=== PATIENT | female | born 1965 | race Caucasian/White ===

== ENCOUNTER 2024-06-01 16:59 | Emergency (ER) | payer BC, SELFPAY ==
[2024-06-01] VITALS (28 sets, daily range): BP systolic 97–149; BP diastolic 54–82; PULSE 66–85; TEMP 37.2; O2SAT 95–100; BMI 22.5
[2024-06-01 17:09] LABS: Glucometer 321 mg/dL (74-106)
--- NOTE | 2024-06-01 17:14 | ECG_ITS ---
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 Measurements Intervals [place] Rate: 69 P: 65 CT: 132 QRS: 67 QRSD: 82 T: 215 QT: 374 QTc: 393 Interpretive Statements [address] and T wave abnormality abnormal ECG No previous ECG available for comparison Electronically Signed On 06-01-2024 17:43:40 EDT by RIGO GLYNN M.D.
[2024-06-01 17:21] LABS: Basophils Absolute Auto 0.1 10^3/uL (0.0-0.1); Basophils Percent Auto 0.8 % (0.2-2.0); Eosinophils Absolute Auto 0.1 10^3/uL (0.0-0.7); Eosinophils Percent Auto 1.3 % (0.9-7.0); Hematocrit 43.8 % (36.0-48.0); Hemoglobin 14.7 g/dL (12.0-16.0); Immature Granulocytes Abs Auto 0.04 10^3/uL (0.00-0.03); Immature Granulocytes Pct Auto 0.5 % (0.0-0.5); Lymphocytes Absolute Auto 1.8 10^3/uL (1.2-3.8); Lymphocytes Percent Auto 20.7 % (20.5-60.0); Mean Corpuscular HGB Conc 33.6 g/dL (29.9-35.2); Mean Corpuscular Hemoglobin 27.2 pg (26.7-34.0); Mean Platelet Volume 11.8 fL (9.5-13.5); Monocytes Absolute Auto 0.7 10^3/uL (0.3-0.8); Monocytes Percent Auto 8.3 % (1.7-12.0); Neutrophils Percent Auto 68.4 % (43.0-75.0); Platelet Count 254 10^3/uL (150-450); Red Blood Count 5.41 10^6/uL (4.20-5.40); Red Cell Distribution Width 12.8 % (11.0-15.0); White Blood Count 8.7 10^3/uL (4.0-11.0)
[2024-06-01] MEDS: 0.9 % SODIUM CHLORIDE 1,000 ML 1000 ML IV (17:30)
--- NOTE | 2024-06-01 17:38 | ED_ITS ---
HPI HPI - General Adult General Chief complaint: Neuro Symptoms/Deficit Stated complaint: SLURRED SPEECH Time Seen by Provider: 06/01/24 17:04 Source: patient Mode of arrival: Wheelchair Limitations: no limitations History of Present Illness HPI narrative: The patient have history of diabetes coming to the ER with a concern of new neurological symptoms, the patient mentioned that yesterday she called off work because she was feeling sick generally weak and tired and she had no appetite, she did not eat well yesterday or today and she did not take her diabetes medication, patient was standing up at work when she felt that she is seeing spots and she felt dizzy, she mentioned that she had a few seconds when she asked to sit down and she feels that she is going to pass out, the patient mentioned that she could not find the words easily at that moment, right now she is back to normal and she does not see any spot . But she mentioned that when she stands up she feels dizzy The patient denies any chest pain and she denies any cough. She did have some chills yesterday The patient denies any weakness at any time and specific part of the body but she mentioned that she had generalized weakness Related Data Home Medications ?Medication ?Instructions ?Recorded ?Confirmed buspirone 30 mg tablet mg 06/01/24 empagliflozin 10 mg tablet mg 06/01/24 (Jardiance) lamotrigine 100 mg tablet mg 06/01/24 levothyroxine 50 mcg tablet mcg 06/01/24 lisinopril 40 mg tablet mg 06/01/24 paroxetine HCl 40 mg tablet mg PO 06/01/24 Allergies Allergy/AdvReac Type Severity Reaction Status Date / Time amoxicillin Allergy Mild Rash Verified 06/01/24 17:09 tetracycline Allergy Mild Rash Verified 06/01/24 17:09 erythromycin base Allergy Rash Verified 06/01/24 17:09 Opioid HPI Opioid Management Most Recent Opioid Data: No Data to Display Review of Systems ROS Status of ROS 10 or more systems reviewed and unremark able except as noted in history and below PFSH PFSH Social History Little interest or pleasure in doing things: not at all Feeling down, depressed, or hopeless: not at all Exam Narrative Exam Narrative: Nurses notes and vital signs reviewed and patient is not hypoxic. General: Well-appearing and in no apparent distress. Skin: Warm, dry, no pallor noted. No rash. Head: Normocephalic, atraumatic. Neck: Supple, non-tender. Eye: Pupils are equal, round and EOMI. No scleral icterus. Ears, Nose, Mouth, and Throat: TM are clear, no nasal mucosal hypertrophy. Oral mucosa is moist, no posterior oropharynx erythema, uvula is mid-line Cardiovascular: Regular Rate and Rhythm without murmur, gallop or rub. Respiratory: No accessory muscle use or respiratory distress. Lungs are clear to auscultation, no wheezing, rales or rhonchi Chest Wall: no tenderness Back: No midline thoracic or lumbar vertebral tenderness. No CVA tenderness Musculoskeletal: normal ROM, no calf or popliteal tenderness, no lower extremity edema/swelling GI: Abdomen is soft, non-distended. Normal bowel sounds. No masses appreciated. No tenderness to palpation. No rebound, guarding, or rigidity noted. Neurological: A&O x4. No cranial nerve dysfunction observed. Moves all extremities. Sensation intact. Psychiatric: Cooperative and interactive. Normal mood and affect. Constitutional Vital Signs, click to edit/add: Last Vital Signs Temp 98.9 F 06/01/24 17:02 Pulse 85 06/01/24 18:28 Resp 20 06/01/24 17:02 BP 128/58 06/01/24 18:28 Pulse Ox 97 06/01/24 17:02 O2 Del Method Room Air 06/01/24 17:02 Course Vital Signs Vital signs: Vital Signs Temperature 98.9 F 06/01/24 17:02 Pulse Rate 75 06/01/24 17:02 Respiratory Rate 20 06/01/24 17:02 Blood Pressure 133/61 06/01/24 17:02 Pulse Oximetry 97 06/01/24 17:02 Oxygen Delivery Method Room Air 06/01/24 17:02 Temperature 98.9 F 06/01/24 17:02 Pulse Rate 85 06/01/24 18:28 Respiratory Rate 20 06/01/24 17:02 Blood Pressure 128/58 06/01/24 18:28 Pulse Oximetry 97 06/01/24 17:02 Oxygen Delivery Method Room Air 06/01/24 17:02 Medical Decision Making MDM Narrative Medical decision making narrative: The patient EKG in the ER showing sinus rhythm with a heart rate of [address] elevation or depression Patient CBC and chemistry showed that she have acute kidney injury The patient was orthostatic as well CT head showed no acute pathology Troponin will be repeated and the patient was feeling much better she will be discharged after the second troponin and after the given another 500 cc The patient was instructed about hydration Patient care was transferred to Lab Data Labs: Lab Results 06/01/24 06/01/24 06/01/24 Range/Units 17:08 17:10 17:30 WBC 8.7 (4.0-11.0) 10^3/uL RBC 5.41 H (4.20-5.40) 10^6/uL Hgb 14.7 (12.0-16.0) g/dL Hct 43.8 (36.0-48.0) % MCV 81.0 (81.0-99.0) fL MCH 27.2 (26.7-34.0) pg MCHC 33.6 (29.9-35.2) g/dL RDW 12.8 (11.0-15.0) % Plt Count 254 (150-450) 10^3/uL MPV 11.8 (9.5-13.5) fL Neut % (Auto) 68.4 (43.0-75.0) % Lymph % (Auto) 20.7 (20.5-60.0) % [place] % (Auto) 8.3 (1.7-12.0) % Eos % (Auto) 1.3 (0.9-7.0) % Baso % (Auto) 0.8 (0.2-2.0) % Neut # (Auto) 6.0 (1.4-6.5) 10^3/uL Lymph # (Auto) 1.8 (1.2-3.8) 10^3/uL [place] # (Auto) 0.7 (0.3-0.8) 10^3/uL Eos # (Auto) 0.1 (0.0-0.7) 10^3/uL Baso # (Auto) 0.1 (0.0-0.1) 10^3/uL Abs Immat Gran (auto) 0.04 H (0.00-0.03) 10^3/uL Imm/Tot Granulo (auto) 0.5 (0.0-0.5) % Sodium (136-145) mmol/L Potassium (3.5-5.1) mmol/L Chloride (98-107) mmol/L Carbon Dioxide (21.0-32.0) mmol/L Anion Gap BUN (7.0-18.0) mg/dL Creatinine (0.55-1.02) mg/dL Est GFR ( Amer) (>=60 mL/min/1.73m^2) Est GFR (Non-Af Amer) (>=60 mL/min/1.73m^2) BUN/Creatinine Ratio Glucose (74-106) mg/dL Calcium (8.5-10.1) mg/dL Magnesium (1.8-2.4) mg/dL Total Bilirubin (0.2-1.0) mg/dL AST (15-37) U/L ALT (14-59) U/L Alkaline Phosphatase (46-116) U/L Troponin I High Sens (4.0-51.3) pg/mL Total Protein (6.4-8.2) g/dL Albumin (3.4-5.0) g/dL Globulin g/dL Albumin/Globulin Ratio Urine Color (YELLOW) Urine Clarity (CLEAR) Urine pH (5.0-9.0) Ur Specific [place] (1.005-1.025) Urine Protein (NEG/TRACE) mg/dL Urine Glucose (UA) (NEGATIVE) mg/dL Urine Ketones (NEGATIVE) mg/dL Urine Occult Blood (NEGATIVE) Urine Nitrite (NEGATIVE) Urine Bilirubin (NEGATIVE) Urine Urobilinogen (0.2-1.0) EU/dL Ur Leukocyte Esterase (NEGATIVE) Influenza Type A Ag Negative Influenza Type B Ag Negative SARS-CoV-2 Ag (CV2AG) Negative (NEGATIVE) POC Glucose 321 H (74-106) mg/dL 06/01/24 06/01/24 Range/Units 17:40 17:48 WBC (4.0-11.0) 10^3/uL RBC (4.20-5.40) 10^6/uL Hgb (12.0-16.0) g/dL Hct (36.0-48.0) % MCV (81.0-99.0) fL MCH (26.7-34.0) pg MCHC (29.9-35.2) g/dL RDW (11.0-15.0) % Plt Count (150-450) 10^3/uL MPV (9.5-13.5) fL Neut % (Auto) (43.0-75.0) % Lymph % (Auto) (20.5-60.0) % [place] % (Auto) (1.7-12.0) % Eos % (Auto) (0.9-7.0) % Baso % (Auto) (0.2-2.0) % Neut # (Auto) (1.4-6.5) 10^3/uL Lymph # (Auto) (1.2-3.8) 10^3/uL [place] # (Auto) (0.3-0.8) 10^3/uL Eos # (Auto) (0.0-0.7) 10^3/uL Baso # (Auto) (0.0-0.1) 10^3/uL Abs Immat Gran (auto) (0.00-0.03) 10^3/uL Imm/Tot Granulo (auto) (0.0-0.5) % Sodium 136 (136-145) mmol/L Potassium 3.7 (3.5-5.1) mmol/L Chloride 100 (98-107) mmol/L Carbon Dioxide 24.0 (21.0-32.0) mmol/L Anion Gap 15.7 BUN 21.0 H (7.0-18.0) mg/dL Creatinine 1.26 H (0.55-1.02) mg/dL Est GFR ( Amer) 53 L (>=60 mL/min/1.73m^2) Est GFR (Non-Af Amer) 43 L (>=60 mL/min/1.73m^2) BUN/Creatinine Ratio 16.7 Glucose 290 H (74-106) mg/dL Calcium 9.4 (8.5-10.1) mg/dL Magnesium 1.9 (1.8-2.4) mg/dL Total Bilirubin 0.5 (0.2-1.0) mg/dL AST 20 (15-37) U/L ALT 26 (14-59) U/L Alkaline Phosphatase 133 H (46-116) U/L Troponin I High Sens 5.0 (4.0-51.3) pg/mL Total Protein 7.6 (6.4-8.2) g/dL Albumin 4.2 (3.4-5.0) g/dL Globulin 3.4 g/dL Albumin/Globulin Ratio 1.2 Urine Color Lt. yellow (YELLOW) Urine Clarity Clear (CLEAR) Urine pH 5.5 (5.0-9.0) Ur Specific [place] 1.010 (1.005-1.025) Urine Protein Negative (NEG/TRACE) mg/dL Urine Glucose (UA) >=1000 A (NEGATIVE) mg/dL Urine Ketones Negative (NEGATIVE) mg/dL Urine Occult Blood Negative (NEGATIVE) Urine Nitrite Negative (NEGATIVE) Urine Bilirubin Negative (NEGATIVE) Urine Urobilinogen 1.0 (0.2-1.0) EU/dL Ur Leukocyte Esterase Negative (NEGATIVE) Influenza Type A Ag Influenza Type B Ag SARS-CoV-2 Ag (CV2AG) (NEGATIVE) POC Glucose (74-106) mg/dL Discharge Plan Discharge Patient Disposition: Still a Patient
[2024-06-01 17:56] LABS: Bilirubin Urine NEGATIVE (NEGATIVE); Blood Urine NEGATIVE (NEGATIVE); Clarity Urine CLEAR (CLEAR); Color Urine LT. YELLOW (YELLOW); Glucose Urine UA >=1000 mg/dL (NEGATIVE); Ketones Urine NEGATIVE (NEGATIVE); Leukocyte Esterase Urine NEGATIVE (NEGATIVE); Nitrite Urine NEGATIVE (NEGATIVE); Protein Urine NEGATIVE (NEG/TRACE); pH Urine 5.5 (5.0-9.0)
[2024-06-01 17:57] LABS: Urine Microscopic Indicated NO
[2024-06-01 18:07] LABS: Influenza Virus A Antigen Negative; Influenza Virus B Antigen Negative; Internal Control Within Normal Limits; SARS-CoV-2 Ag NEGATIVE (NEGATIVE)
[2024-06-01 18:13] LABS: Alanine Aminotransferase 26 U/L (14-59); Albumin Globulin Ratio 1.2; Albumin Level 4.2 g/dL (3.4-5.0); Alkaline Phosphatase 133 U/L (46-116); Anion Gap 15.7; Aspartate Amino Transferase 20 U/L (15-37); BUN Creatinine Ratio 16.7; Bilirubin Total 0.5 mg/dL (0.2-1.0); Calcium 9.4 mg/dL (8.5-10.1); Chloride 100 mmol/L (98-107); Estimated GFR (African America 53 (>=60 mL/min/1.73m^2); Estimated GFR (Non-African Ame 43 (>=60 mL/min/1.73m^2); Globulin 3.4 g/dL; Glucose 290 mg/dL (74-106); Potassium 3.7 mmol/L (3.5-5.1); Sodium 136 mmol/L (136-145); Total Protein 7.6 g/dL (6.4-8.2)
[2024-06-01 18:15] LABS: Magnesium 1.9 mg/dL (1.8-2.4)
[2024-06-01] MEDS: 0.9 % SODIUM CHLORIDE 1,000 ML 500 ML IV (19:09)
[2024-06-01 19:39] LABS: Troponin I High Sensitivity 4.5 pg/mL (4.0-51.3)
--- NOTE | 2024-06-01 19:50 | ED_ITS ---
HPI HPI - General Adult General Chief complaint: Neuro Symptoms/Deficit Stated complaint: SLURRED SPEECH Time Seen by Provider: 06/01/24 17:04 Source: patient Mode of arrival: Wheelchair Limitations: no limitations History of Present Illness HPI narrative: 58-year-old female presents to the emergency department and was initially seen by Dr. Harris and signed out to me after discussing the case with her thoroughly. Please see her full history and physical exam. Related Data Home Medications ?Medication ?Instructions ?Recorded ?Confirmed buspirone 30 mg tablet mg 06/01/24 empagliflozin 10 mg tablet mg 06/01/24 (Jardiance) lamotrigine 100 mg tablet mg 06/01/24 levothyroxine 50 mcg tablet mcg 06/01/24 lisinopril 40 mg tablet mg 06/01/24 paroxetine HCl 40 mg tablet mg PO 06/01/24 Allergies Allergy/AdvReac Type Severity Reaction Status Date / Time amoxicillin Allergy Mild Rash Verified 06/01/24 17:09 tetracycline Allergy Mild Rash Verified 06/01/24 17:09 erythromycin base Allergy Rash Verified 06/01/24 17:09 Opioid HPI Opioid Management Most Recent Opioid Data: No Data to Display PFSH PFSH Social History Little interest or pleasure in doing things: not at all Feeling down, depressed, or hopeless: not at all Exam Constitutional Vital Signs, click to edit/add: Last Vital Signs Temp 98.9 F 06/01/24 17:02 Pulse 66 06/01/24 19:10 Resp 17 06/01/24 19:10 BP 128/58 06/01/24 18:28 Pulse Ox 97 06/01/24 19:10 O2 Del Method Room Air 06/01/24 17:02 Course Vital Signs Vital signs: Vital Signs Temperature 98.9 F 06/01/24 17:02 Pulse Rate 75 06/01/24 17:02 Respiratory Rate 20 06/01/24 17:02 Blood Pressure 133/61 06/01/24 17:02 Pulse Oximetry 97 06/01/24 17:02 Oxygen Delivery Method Room Air 06/01/24 17:02 Temperature 98.9 F 06/01/24 17:02 Pulse Rate 66 06/01/24 19:10 Respiratory Rate 17 06/01/24 19:10 Blood Pressure 128/58 06/01/24 18:28 Pulse Oximetry 97 06/01/24 19:10 Oxygen Delivery Method Room Air 06/01/24 17:02 Medical Decision Making MDM Narrative Medical decision making narrative: Laboratory analysis is essentially negative. 2 sets of troponin are negative and her CT of her brain was negative as well. She was given IV fluids and feels improved and is able to be discharged home. Treatment diagnosis and follow-up were discussed with the patient and her family. Differential Diagnosis Differential Diagnosis: Dehydration, anemia, electrolyte imbalance, UTI Lab Data Lab results reviewed: Yes I reviewed the patient's lab results Labs: Lab Results 06/01/24 06/01/24 06/01/24 Range/Units 17:08 17:10 17:30 WBC 8.7 (4.0-11.0) 10^3/uL RBC 5.41 H (4.20-5.40) 10^6/uL Hgb 14.7 (12.0-16.0) g/dL Hct 43.8 (36.0-48.0) % MCV 81.0 (81.0-99.0) fL MCH 27.2 (26.7-34.0) pg MCHC 33.6 (29.9-35.2) g/dL RDW 12.8 (11.0-15.0) % Plt Count 254 (150-450) 10^3/uL MPV 11.8 (9.5-13.5) fL Neut % (Auto) 68.4 (43.0-75.0) % Lymph % (Auto) 20.7 (20.5-60.0) % [place] % (Auto) 8.3 (1.7-12.0) % Eos % (Auto) 1.3 (0.9-7.0) % Baso % (Auto) 0.8 (0.2-2.0) % Neut # (Auto) 6.0 (1.4-6.5) 10^3/uL Lymph # (Auto) 1.8 (1.2-3.8) 10^3/uL [place] # (Auto) 0.7 (0.3-0.8) 10^3/uL Eos # (Auto) 0.1 (0.0-0.7) 10^3/uL Baso # (Auto) 0.1 (0.0-0.1) 10^3/uL Abs Immat Gran (auto) 0.04 H (0.00-0.03) 10^3/uL Imm/Tot Granulo (auto) 0.5 (0.0-0.5) % Sodium (136-145) mmol/L Potassium (3.5-5.1) mmol/L Chloride (98-107) mmol/L Carbon Dioxide (21.0-32.0) mmol/L Anion Gap BUN (7.0-18.0) mg/dL Creatinine (0.55-1.02) mg/dL Est GFR ( Amer) (>=60 mL/min/1.73m^2) Est GFR (Non-Af Amer) (>=60 mL/min/1.73m^2) BUN/Creatinine Ratio Glucose (74-106) mg/dL Calcium (8.5-10.1) mg/dL Magnesium (1.8-2.4) mg/dL Total Bilirubin (0.2-1.0) mg/dL AST (15-37) U/L ALT (14-59) U/L Alkaline Phosphatase (46-116) U/L Troponin I High Sens (4.0-51.3) pg/mL Total Protein (6.4-8.2) g/dL Albumin (3.4-5.0) g/dL Globulin g/dL Albumin/Globulin Ratio Urine Color (YELLOW) Urine Clarity (CLEAR) Urine pH (5.0-9.0) Ur Specific [place] (1.005-1.025) Urine Protein (NEG/TRACE) mg/dL Urine Glucose (UA) (NEGATIVE) mg/dL Urine Ketones (NEGATIVE) mg/dL Urine Occult Blood (NEGATIVE) Urine Nitrite (NEGATIVE) Urine Bilirubin (NEGATIVE) Urine Urobilinogen (0.2-1.0) EU/dL Ur Leukocyte Esterase (NEGATIVE) Influenza Type A Ag Negative Influenza Type B Ag Negative SARS-CoV-2 Ag (CV2AG) Negative (NEGATIVE) POC Glucose 321 H (74-106) mg/dL 06/01/24 06/01/24 06/01/24 Range/Units 17:40 17:48 19:11 WBC (4.0-11.0) 10^3/uL RBC (4.20-5.40) 10^6/uL Hgb (12.0-16.0) g/dL Hct (36.0-48.0) % MCV (81.0-99.0) fL MCH (26.7-34.0) pg MCHC (29.9-35.2) g/dL RDW (11.0-15.0) % Plt Count (150-450) 10^3/uL MPV (9.5-13.5) fL Neut % (Auto) (43.0-75.0) % Lymph % (Auto) (20.5-60.0) % [place] % (Auto) (1.7-12.0) % Eos % (Auto) (0.9-7.0) % Baso % (Auto) (0.2-2.0) % Neut # (Auto) (1.4-6.5) 10^3/uL Lymph # (Auto) (1.2-3.8) 10^3/uL [place] # (Auto) (0.3-0.8) 10^3/uL Eos # (Auto) (0.0-0.7) 10^3/uL Baso # (Auto) (0.0-0.1) 10^3/uL Abs Immat Gran (auto) (0.00-0.03) 10^3/uL Imm/Tot Granulo (auto) (0.0-0.5) % Sodium 136 (136-145) mmol/L Potassium 3.7 (3.5-5.1) mmol/L Chloride 100 (98-107) mmol/L Carbon Dioxide 24.0 (21.0-32.0) mmol/L Anion Gap 15.7 BUN 21.0 H (7.0-18.0) mg/dL Creatinine 1.26 H (0.55-1.02) mg/dL Est GFR ( Amer) 53 L (>=60 mL/min/1.73m^2) Est GFR (Non-Af Amer) 43 L (>=60 mL/min/1.73m^2) BUN/Creatinine Ratio 16.7 Glucose 290 H (74-106) mg/dL Calcium 9.4 (8.5-10.1) mg/dL Magnesium 1.9 (1.8-2.4) mg/dL Total Bilirubin 0.5 (0.2-1.0) mg/dL AST 20 (15-37) U/L ALT 26 (14-59) U/L Alkaline Phosphatase 133 H (46-116) U/L Troponin I High Sens 5.0 4.5 (4.0-51.3) pg/mL Total Protein 7.6 (6.4-8.2) g/dL Albumin 4.2 (3.4-5.0) g/dL Globulin 3.4 g/dL Albumin/Globulin Ratio 1.2 Urine Color Lt. yellow (YELLOW) Urine Clarity Clear (CLEAR) Urine pH 5.5 (5.0-9.0) Ur Specific [place] 1.010 (1.005-1.025) Urine Protein Negative (NEG/TRACE) mg/dL Urine Glucose (UA) >=1000 A (NEGATIVE) mg/dL Urine Ketones Negative (NEGATIVE) mg/dL Urine Occult Blood Negative (NEGATIVE) Urine Nitrite Negative (NEGATIVE) Urine Bilirubin Negative (NEGATIVE) Urine Urobilinogen 1.0 (0.2-1.0) EU/dL Ur Leukocyte Esterase Negative (NEGATIVE) Influenza Type A Ag Influenza Type B Ag SARS-CoV-2 Ag (CV2AG) (NEGATIVE) POC Glucose (74-106) mg/dL Imaging Data CT scan - head: Radiologist's impression: CT brain: No acute process Discharge Plan Discharge Chief Complaint: Neuro Symptoms/Deficit Clinical Impression: Dehydration Patient Disposition: Home, Self-Care Time of Disposition Decision: 19:49 Condition: Good Mode of Transportation: Private Vehicle Prescriptions / Home Meds: No Action levothyroxine 50 mcg tablet buspirone 30 mg tablet paroxetine HCl 40 mg tablet PO lisinopril 40 mg tablet lamotrigine 100 mg tablet Jardiance 10 mg tablet Print Language: Iraqi Instructions: Dehydration (ED) Referrals: Lawanda Newman DO [Primary Care Provider] - 1 week
== END 2024-06-01 20:07 | disposition home or self-care (01) ==
PROVIDERS: Emergency Medicine; Emergency Provider Emergency Medicine; PCP Family Medicine
DX: E86.0 Dehydration (principal); E11.9 Type 2 diabetes mellitus without complications; Z79.84 Long term (current) use of oral hypoglycemic drugs; R42 Dizziness and giddiness
CPT/HCPCS: 36415; 70450; 80053; 81003; 83735; 84484; 85025; 87804; 87811; 93005; 96360; 96361; 99285

== ENCOUNTER 2024-07-06 08:38 | Outpatient (OUT) | payer BC, SELFPAY ==
--- NOTE | 2024-07-06 08:49 | MR_ITS ---
The [address] [address] Patient Name: ESCOBAR DOMÍNGUEZ MRN: [id number] date: 1965 Sex: F Assigned Patient Location: LAB Current Patient Location: LAB Accession/Order Number: [id number] Exam Date: 07/06/2024 10:24 Report Date: 07/06/2024 10:27 At the request of: ANTHONY ALDRIDGE DO Procedure: MR head/brain wo/w con MRI of the brain with and without IV contrast. Reason for exam: Vision changes. COMPARISON: CT brain 06/01/2024. TECHNIQUE: Multisequence, multiplanar imaging of the brain was performed before and after the use of IV contrast. FINDINGS: No evidence of restriction diffusion is an diffusion-weighted imaging. No evidence of blood products are seen on T2 Star imaging. Cortical atrophy with moderate chronic microvascular ischemic changes are noted. Posterior fossa appears unremarkable. Intraorbital contents appear grossly unremarkable. No paranasal sinus disease. Postcontrast imaging demonstrates no abnormal enhancement. MR/MR head/brain wo/w con IMPRESSION: No acute intracranial process. Cortical atrophy with moderate chronic microvascular ischemic change. Impression dictated by: Cirilo Silva Jr.OTaye 07/06/2024 10:27 AM Dictation Location: [place] [address] Electronically authenticated by: [id number] Y Date: 07/06/2024 10:27
[2024-07-06 08:55] LABS: Estimated GFR (African America >60 (>=60 mL/min/1.73m^2); Estimated GFR (Non-African Ame >60 (>=60 mL/min/1.73m^2)
== END 2024-07-06 08:39 | disposition home or self-care (01) ==
LOC: LAB 08:39
PROVIDERS: Pathology Anatomic Pathology & Clinical Pathology; PCP Family Medicine; Visit Provider Family Medicine
DX: I67.9 Cerebrovascular disease, unspecified (principal); G31.9 Degenerative disease of nervous system, unspecified
CPT/HCPCS: 36415; 70553; 82565; A9575

== ENCOUNTER 2025-01-06 22:40 | Emergency (ER) | payer BC, SELFPAY ==
--- OUTSIDE RECORDS SUMMARY | 2018-09-02 06:57 | XMS_ITS | Continuity of Care Document ---
Author Organization [facility] Address [address] [place] [address] Phone Care Team Providers Care Manager Employee Benefits Name Role Phone Haris López MD Unavailable [...] Diagnoses Date Provider Providers Copied on Encounter [facility], [address], [place], [place], [id number], [place] tel:[phone] No Information 9 Maribel Carballo. [address] [place] [address], [id number] , [place]. tel:[phone] Offic/outpt E&m Estab Low-mod [facility], [address], [place], [place], [id number], [place] tel:[phone] SWOB-GJ FOLLOW UP (chief complaint)va ginal bleeding (chief complaint) Open Wound Of Vagina 4 Maribel Carballo. [address] [place] [address], [id number] , [place]. tel:[phone] Offic/outpt E&m Estab Mod-hi 2 [facility], [address], [place], [place], [id number], [place] tel:[phone] SWOB-GJ bleeding with intercourse (chief complaint)LL Q PAIN (chief complaint) Open wound of vagina, without mention of complicat 4 Maribel Carballo. [facility] [place], [place], [id number] , [place]. tel: [phone] Offic/outpt E&m Estab Low-mod [facility], [address], [place], [place], [id number], [place] tel:[phone] SWOB-GJ BACTERIAL INFECTION (chief complaint)va ginal discharge/it cesar (chief complaint) Bacterial Vaginosis/ Nonspecific 4 Maribel Carballo. [address] [place] [address], [id number] , [place]. tel: [phone] [facility], [address], [place], [place], [id number], [place] tel: [phone] SWOB-GJ Adrenogenital DisordersEndo metriosis NecHypertensi on, Benign 3 Maribel Carballo. [address] [place] [address], [id number] , [place]. tel: [phone] Offic/outpt E&m Estab Lowmod [facility], [address], [place], [place], [id number], [place] tel:[phone] SWOB-GJ Bacterial infection (chief complaint)va ginal discharge/it cesar (chief complaint) Bacterial Vaginosis/ Nonspecific 3 Maribel Carballo. [address] [place] [address], [id number] , [place]. tel: [phone] Offic/outpt E&m Estab Low-mod [facility], [address], [place], [place], [id number], [place] tel: [phone] SWOB-GJ No Information 2 Maribel Carballo. [address] [place] [address], [id number] , [place]. tel: [phone] Offic/outpt E&m Estab Low-mod [facility], [address], [place], [place], [id number], [place] tel: [phone] SWOB-GJ No Information 6201 2 Maribel Carballo. [address] [place] [address], [id number] , [place]. tel: [phone] Offic/outpt E&m Estab Low-mod [facility], [address], [place], [place], [id number], [place] tel: [phone] [facility] No Information 2 Maribel Carballo. [address] [place] [address], [id number] , [place]. tel: [phone] Offic/outpt E&m Estab Minor 10 [facility], [address] [address], [place], [place], [id number], [place] tel: [phone] [facility] No Information 0 2-201 1 Maribel Carballo. [address] [place] [address], [id number] , [place]. tel: [phone] [facility], [address] [address], [place], [place], [id number], [place] tel: [phone] [facility] No Information 8-201 0 Maribel Carballo. [address] [place] [address], [id number] , [place]. tel: [phone] [facility], [address], [place], [place], [id number], [place] tel: [phone] [facility] No Information 5 0 Maribel Carballo. [address] [place] [address], [id number] , [place]. tel: [phone] [facility], [address], [place], [place], [id number], [place] tel: [phone] [facility] No Information Dec-0 9-200 9 Maribel Carballo. [address] [place] [address], [id number] , [place]. tel:[phone] Referring Provider: Haris Serra, [address] [place] [address], [address] . tel:[phone] Offic/outpt E&m Estab Low-mod [facility], [address] [address], [place], [place], [id number], [place] tel:[phone] [facility] No Information 0-200 9 Maribel Carballo. [address] [place] [address], [id number] , [place]. tel: [phone] [facility], [address] [address], [place], [place], [id number], [place] tel:[phone] [facility] No Information 9200 9 Maribel Carballo. [address] [place] [address], [id number] , [place]. tel: [phone] [facility], [address] [address], [place], [place], [id number], [place] tel:[phone] [facility] No Information 200 9 Maribel Carballo. [address] [place] [address], [id number] , [place]. tel: [phone] Offic/outpt E&m Estab Low-mod [facility], [address] [address], [place], [place], [id number], [place] tel:[phone] [facility] No Information 200 9 Maribel Carballo. [address] [place] [address], [id number] , [place]. tel: [phone] [facility], [address] [address], [place], [place], [id number], [place] tel:[phone] [facility] No Information 0 200 9 Maribel Carballo. [address] [place] [address], [id number] , [place]. tel:[phone] Init Preven Meds E&m New Pt; 4 [facility], [address], [place], [place], [id number], [place] tel:[phone] [facility] No Information 9 Maribel Carballo. [address] [place] [address], [id number] , [place]. tel:[phone] Referring Provider: Haris López MD W, [address] [place] [address], [id number] . tel:[phone] Family History Family Member Type Diagnosis Age At Onset No Information Payers Payer name Insurance type Covered alliance party ID Authoriza tion(s) No Information Social History Type Description Quantity Date Captured Comments Sex Female Smoking Status No Information Chief Complaint And Reason For Visit No Information Reason For Referral Reason For Referral No Information History Of Present Illness Encounter Date Complaint History Of Prese nt Illness vaginal bleeding Onset: sudden. Severity level is [...] on estrace cream for severe atrophic changes.. FOLLOW UP LLQ PAIN bleeding with intercourse Onset: sudden. Severity level [...] pallor, pelvic pain and swelling. Additional information: [place] usually bee ok, butrecently has noticed more dryness and had sudden onset of pain and then bleeding. Almost went to ER.. vaginal discharge/itching Onset: sudden. Severity level is moderate-severe. Duration 24-72 hours. The patient describes it as fishy and yellow. It occurs continuously. The problem is with no change. Context: HRT and sexually active. Denies aggravating factors. Denies relieving factors. Pertinent negatives include bleeding, burning, dyspareunia, itching, parasites, persistent diarrhea, vulvar dystrophy and vulvodynia. BACTERIAL INFECTION Bacterial infection vaginal discharge/itching Onset: 1 week [...]
--- OUTSIDE RECORDS SUMMARY | 2025-01-06 22:49 | XMS_ITS | Clinical Summary ---
Author Organization [facility] Address [address] [place] [id number] Care Team Providers Care Training Director Name Role Phone Roel CARNEY DO, Rolland R Primary Care Provider Allergies Active AllergyReactionsCriticalityNoted SzdsEqznnzenTxjgqfbjtflb20/21/2009 Ignglmqizugfk07/21/9849Bqbwkxmsnbe29/21/6541Xoehclejdp79/21/2009Oxytetracycline 07/02/20080388Rffuouyowkkm96/21/2009 Medications MedicationSigDispense QuantityRefillsLast FilledStart DateEnd DateStatus paroxetine hcl(PAXIL 30 MG TAB) Take one(1) tablet daily.ctive levothyroxine sodium(SYNTHROID 25 MCG TAB) Take one(1) tablet daily.ctive fexofenadine hcl(SIENA 60 MG TAB) Take one(1) tablet two(2) times daily.ctive Active Problems ProblemNoted DateDiagnosed 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 Family History Medical HistoryRelationCommentsDiabetesFatherHeartFatherCancerMaternal GrandfatherCancerMaternal GrandmotherDiabetesMotherHeartMotherHeartPaternal GrandmotherRelationStatusCommentsFatherMaternal GrandfatherMaternal Grandmother MotherPaternal Grandmother Social History Tobacco UseTypesPacks/DayYears UsedDateSmoking Tobacco: Former Comments:quit 9 yrs ago Alcohol UseStandard Drinks/WeekCommentsNo0 (1 standard drink = 0.6 oz pure alcohol)Area Deprivation IndexAnswerDate RecordedNational Score (1-100), lower number is lower riskNot on file02/18/2020State Score (1-10), lower number is lower riskNot on file02/18/2020Data from: https://www.neighborhoodatlas.medicine.[facility].edu/. Last address used for calculationNot on file02/18/2020CommentsNoSex and Gender Information ValueDate RecordedSex Assigned at BirthNot on fileLegal ZwkBogvqh56/02/2012 8:19 AM ESTGender IdentityNot on fileSexual OrientationNot on file Last Filed Vital Signs Vital SignReadingTime TakenCommentsBlood Blcvfpmk265/76007/18/2008 4:16 PM EDT Pulse--Kmvytsltcbu02.3 ??C (99.2 ??F)07/18/2008 4:16 PM EDTRespiratory Rate-- Oxygen Saturation--Inhaled Oxygen Concentration--Weight--Height--Body Mass Index -- Plan of Treatment Health MaintenanceDue DateLast DoneCommentsAnxiety Xvrniwzys33/20/1983Depression Zejtcwbvk49/20/1983HIV Elxvvenws17/20/1983Hepatitis C Nlqxlluxj00/20/1983 DTaP,Tdap,Td Vaccine (1 - Tdap)08/01/1983Cervical Cancer Webyhuymq65/20/1986 Mammogram Qlwhmiuqf67/20/2005CT Irhcuvehkrso90/20/2010Cologuard (FIT-DNA) 07/31/20094713Mnrmikimsrz35/20/2010Colorectal Cancer Ncpcuhnsn80/20/2010Diabetes Znngcurfi41/20/2010Fecal Occult Blood2009Lipid Ixxutznyo12/20/2010 Jyaroqanosohk49/20/2010Pneumococcal Vaccine: 50+ (1 of 1 - PCV)2014 Shingrix Vaccine (1 of 2)2014Covid-19 Vaccine (1 - 2024- season) 2024Influenza Vaccine (#1)2024RSV Vaccine (1 - 1-dose 75+ series) 08/01/2039 Insurance Care Teams Team MemberRelationshipSpecialtyStart DateEnd Date Sean Sevilla III, DO [facility] - General06/18/08
[2025-01-06 23:00] VITALS: BP 159/73; PULSE 88; TEMP 37.3; O2SAT 98; BMI 23.7
--- NOTE | 2025-01-06 23:41 | ED.GENADUL1 ---
HPI HPI - General Adult General Chief complaint: Recheck/Abnormal Lab/Rx Stated complaint: TINGLING/NUMBNESS L SIDE, POSS HIGH SUGAR Time Seen by Provider: 01/06/25 23:22 Source: patient Mode of arrival: Wheelchair Limitations: no limitations History of Present Illness HPI narrative: patient presents complaining of recurrent episodes of numbness of her body. States last week she would experience a wave sensation of numbness starting from her head down to her feet and it would resolve. This happened a few times. Today she has experienced same type of numbness or tinglings only involving the left side of her body. left face down to the left half of her body. States several episodes of this sensation today and even 3 times while waiting to be seen here in the ED. only last few seconds. States at home with one episode she felt like her left leg buckled. No recurrence of extremity weakness. No associated chest pain Related Data Home Medications ?Medication ?Instructions ?Recorded ?Confirmed buspirone 30 mg tablet mg 06/01/24 empagliflozin 10 mg tablet mg 06/01/24 (Jardiance) lamotrigine 100 mg tablet mg 06/01/24 levothyroxine 50 mcg tablet mcg 06/01/24 lisinopril 40 mg tablet mg 06/01/24 paroxetine HCl 40 mg tablet mg PO 06/01/24 Allergies Allergy/AdvReac Type Severity Reaction Status Date / Time amoxicillin Allergy Mild Rash Verified 06/01/24 17:09 tetracycline Allergy Mild Rash Verified 06/01/24 17:09 erythromycin base Allergy Rash Verified 06/01/24 17:09 Review of Systems ROS Status of ROS 10 or more systems reviewed and unremarkable except as noted in history and below PFSH PFSH Social History Little interest or pleasure in doing things: several days Feeling down, depressed, or hopeless: several days Exam Constitutional Vital Signs, click to edit/add: Last Vital Signs Temp 99.1 F 01/06/25 23:00 Pulse 62 01/07/25 03:40 Resp 16 01/07/25 03:40 BP 150/66 H 01/07/25 03:30 Pulse Ox 96 01/07/25 03:40 O2 Del Method Room Air 01/06/25 23:00 Common normals: no apparent distress, average body habitus, oriented x3, no limitations, healthy appearing, alert and well nourished [facility] Common normals: normocephalic and head/scalp atraumatic Eye Common normals: PERRL, EOMs intact bilaterally and conjunctivae normal Respiratory Common normals: normal respiratory effort, no retractions, no use of accessory muscles and clear to auscultation bilaterally Cardio Common normals: regular rate, regular rhythm, S1 normal heart sound and S2 normal heart sound GI Common normals: Normal to inspection, nondistended, normoactive bowel sounds present, soft to palpation and non-tender Extremity Common normals: normal to inspection and full ROM Neuro Common normals: oriented x3, CN's II-XII intact bilaterally, moves all extremities and no focal motor deficits Psych Appearance: grossly normal Course Vital Signs Vital signs: Vital Signs Temperature 99.1 F 01/06/25 23:00 Pulse Rate 88 01/06/25 23:00 Respiratory Rate 18 01/06/25 23:00 Blood Pressure 159/73 H 01/06/25 23:00 Pulse Oximetry 98 01/06/25 23:00 Oxygen Delivery Method Room Air 01/06/25 23:00 Temperature 99.1 F 01/06/25 23:00 Pulse Rate 62 01/07/25 03:40 Respiratory Rate 16 01/07/25 03:40 Blood Pressure 150/66 H 01/07/25 03:30 Pulse Oximetry 96 01/07/25 03:40 Oxygen Delivery Method Room Air 01/06/25 23:00 Medical Decision Making MDM Narrative Medical decision making narrative: patient is diabetic with history of HTN and diabetes. States last week experienced 2 episodes of numbness starting from the top of her head and going down thru her body. Tonight she has several episodes of numbness but only the left side of her body. Again starting at her head and extending down her leg. States she was going to sit down during one episode and felt like her left leg buckled. In the ER she experienced 3 episodes of the left sided numbness that lasted a few seconds and resolved. Normal neuro exam. CT brain without with old infarct. CTA brain and neck normal. Discussed with [facility] Neurologist Dr Albright who felt the patient could continue her workup as an out patient. Patient discharged home to follow up with her doctor for neuro consult and continued workup Lab Data Labs: Lab Results 01/06/25 01/07/25 Range/Units 23:22 00:14 WBC 6.4 (4.0-11.0) 10^3/uL RBC 4.83 (4.20-5.40) 10^6/uL Hgb 13.3 (12.0-16.0) g/dL Hct 38.9 (36.0-48.0) % MCV 80.5 L (81.0-99.0) fL MCH 27.5 (26.7-34.0) pg MCHC 34.2 (29.9-35.2) g/dL RDW 12.5 (11.0-15.0) % Plt Count 197 (150-450) 10^3/uL MPV 11.2 (9.5-13.5) fL Neut % (Auto) 43.6 (43.0-75.0) % Lymph % (Auto) 44.3 (20.5-60.0) % [place] % (Auto) 8.0 (1.7-12.0) % Eos % (Auto) 2.8 (0.9-7.0) % Baso % (Auto) 1.1 (0.2-2.0) % Neut # (Auto) 2.8 (1.4-6.5) 10^3/uL Lymph # (Auto) 2.8 (1.2-3.8) 10^3/uL [place] # (Auto) 0.5 (0.3-0.8) 10^3/uL Eos # (Auto) 0.2 (0.0-0.7) 10^3/uL Baso # (Auto) 0.1 (0.0-0.1) 10^3/uL Abs Immat Gran (auto) 0.01 (0.00-0.03) 10^3/uL Imm/Tot Granulo (auto) 0.2 (0.0-0.5) % Sodium 133 L (136-145) mmol/L Potassium 3.4 L (3.5-5.1) mmol/L Chloride 98 (98-107) mmol/L Carbon Dioxide 25.8 (21.0-32.0) mmol/L Anion Gap 12.6 BUN 12.0 (7.0-18.0) mg/dL Creatinine 0.84 (0.55-1.02) mg/dL Est GFR ( Amer) >60 (>=60 mL/min/1.73m^2) Est GFR (Non-Af Amer) >60 (>=60 mL/min/1.73m^2) BUN/Creatinine Ratio 14.3 Glucose 344 H (74-106) mg/dL Calcium 8.7 (8.5-10.1) mg/dL Troponin I High Sens 5.5 (4.0-51.3) pg/mL POC Glucose 302 H (74-106) mg/dL Discharge Plan Discharge Chief Complaint: Recheck/Abnormal Lab/Rx Clinical Impression: Paresthesia Patient Disposition: Home, Self-Care Prescriptions / Home Meds: No Action levothyroxine 50 mcg tablet buspirone 30 mg tablet paroxetine HCl 40 mg tablet PO lisinopril 40 mg tablet lamotrigine 100 mg tablet Jardiance 10 mg tablet Print Language: Nigerian Instructions: Paresthesia (ED) Additional Instructions: follow up with your doctor for neurology referral Referrals: Lawanda Newman DO [Primary Care Provider] - 1 week
--- NOTE | 2025-01-06 23:45 | ECG_ITS ---
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 Measurements Intervals [place] Rate: 64 P: 61 WI: 124 QRS: 49 QRSD: 82 T: 20 QT: 410 QTc: 420 Interpretive Statements 1100 Sinus rhythm 4068 Nonspecific Twave abnormality 9130 borderline ECG Compared to ECG 06/01/2024 17:07:13 ST (T wave) deviation no longer present Electronically Signed On 01-07-2025 18:01:12 EDT by RIGO GLYNN M.D.
[2025-01-07] VITALS (24 sets, daily range): BP systolic 133–161; BP diastolic 61–77; PULSE 58–79; O2SAT 95–98
[2025-01-07 00:23] LABS: Hematocrit 38.9 % (36.0-48.0); Hemoglobin 13.3 g/dL (12.0-16.0); Immature Granulocytes Abs Auto 0.01 10^3/uL (0.00-0.03); Immature Granulocytes Pct Auto 0.2 % (0.0-0.5); Lymphocytes Absolute Auto 2.8 10^3/uL (1.2-3.8); Mean Corpuscular HGB Conc 34.2 g/dL (29.9-35.2); Mean Corpuscular Hemoglobin 27.5 pg (26.7-34.0); Mean Corpuscular Volume 80.5 fL (81.0-99.0); Platelet Count 197 10^3/uL (150-450); Red Blood Count 4.83 10^6/uL (4.20-5.40); White Blood Count 6.4 10^3/uL (4.0-11.0)
[2025-01-07 00:40] LABS: Potassium 3.4 mmol/L (3.5-5.1); Sodium 133 mmol/L (136-145)
[2025-01-07 00:41] LABS: Anion Gap 12.6; Blood Urea Nitrogen 12.0 mg/dL (7.0-18.0); Calcium 8.7 mg/dL (8.5-10.1); Carbon Dioxide 25.8 mmol/L (21.0-32.0); Chloride 98 mmol/L (98-107); Estimated GFR (African America >60 (>=60 mL/min/1.73m^2); Estimated GFR (Non-African Ame >60 (>=60 mL/min/1.73m^2); Glucose 344 mg/dL (74-106)
--- NOTE | 2025-01-07 01:20 | PC.NURSE ---
this patient awake and alert sitting upright on the bed watching tv with her . i informed this patient that we are waiting on the ct results this patient voices no concerns, needs and shows no signs of distress
--- NOTE | 2025-01-07 01:36 | PC.NURSE ---
this patient informed of the new orders for CTA head, and neck. this patient voices no concerns, needs and shows no signs of distress
--- NOTE | 2025-01-07 02:02 | PC.NURSE ---
this patient ambulated from the restroom to room number 10, i informed this patient now we waiting for the ct results. this patient asking for some water and i told her that i will ask Dr Gonzalez
--- NOTE | 2025-01-07 03:05 | PC.NURSE ---
this patient updated that we are still waiting on ct results to come back. this patient voices no concerns, needs and shows no signs of distress
--- NOTE | 2025-01-07 03:20 | PC.NURSE ---
this patient is back in her room and sitting upright on the bed from ambulating from the restroom this patient voices no concerns, needs and shows no signs of distress this patient is still aware that we are waiting on ct results
--- NOTE | 2025-01-07 04:00 | PC.NURSE ---
Dr Gonzalez is talking to Dr Albright (stroke dr from [facility]) and stroke nurse [place] listing in with these two dr sharif
--- NOTE | 2025-01-07 04:20 | PC.NURSE ---
i gave this patient verbal and written discharge orders and this patient voices yes to understanding these. at time of discharge this patient nor her voices no concerns, needs and this patient shows no signs of distress
== END 2025-01-07 04:19 | disposition home or self-care (01) ==
PROVIDERS: Emergency Provider Internal Medicine; PCP Family Medicine
DX: R20.2 Paresthesia of skin (principal)
CPT/HCPCS: 36415; 70450; 70496; 70498; 80048; 82948; 84484; 85025; 93005; 99285; Q9967

== ENCOUNTER 2025-01-12 19:00 | Emergency (ER) | payer BC, SELFPAY ==
--- OUTSIDE RECORDS SUMMARY | 2018-09-02 06:57 | XMS_ITS | Continuity of Care Document ---
Author Organization [facility] Address [address] [place] [address] Phone Care Team Providers Care Headline Writer Name Role Phone Haris López MD Unavailable Unavailable Allergies, Adverse Reactions, Alerts Substance Reaction Status Criticality No Known allergies Medications Medication Instructions Dosage Effective Dates (start - stop) Status Comments estradiol 2 mg tablet take 1 tablet (2MG ) by oral route every day 2 MG - Active Flagyl 500 mg tablet take 1 tablet (500MG) by oral route 2 times every day - Active Cortef 10 mg tablet take 4 Tablet (40MG) by oral route every day with food 40 MG - Active fludrocortisone 0.1 mg tablet take 1 tablet (0.1MG) by oral route every day 0.1 MG - Active Synthroid 125 mcg tablet take 1 tablet (125MCG) by oral route every day 125 MCG - Active Procedures Procedure Date Offic/outpt E&m Estab Low-mod 4 Offic/outpt E&m Estab Mod-hi 2 14 Smear Prim W/intrpt; Wet Mnt W 14 Offic/outpt E&m Estab Low-mod 4 Cult Bact Screen Only Sngl Org 13 Culture Chlamydia Smear Prim W/intrpt; Wet Mnt W 13 Offic/outpt E&m Estab Low-mod 3 Offic/outpt E&m Estab Low-mod 2 Smear Prim W/intrpt; Wet Mnt W 12 Offic/outpt E&m Estab Low-mod 2 Smear Prim W/intrpt; Wet Mnt W 12 Offic/outpt E&m Estab Low-mod 2 Smear Prim W/intrpt; Wet Mnt W 12 Offic/outpt E&m Estab Minor 10 11 Postop F/u Visit Incld Global 0 Postop F/u Visit Incld Global 0 Hank W/wo Remov Tube(s) - Ovary 09 Offic/outpt E&m Estab Low-mod 9 Patient Responsibility THER/PROPH/DIAG INJ, SC/IM Offic/outpt E&m Estab Low-mod 9 Echo Transvaginal Init Preven Meds E&m New Pt; 4 09 Cytopath Cerv/vag Thin Prep; R 09 Advance Directives Directive Yes / No Effective Date File Name No Information Encounters Encounter Description Practice Location Reason(s) For Visit Diagnoses Date Provider Providers Copied on Encounter [facility], [address], [place], [place], [id number], [place] tel:[phone] No Information 9 Maribel Carballo. [address] [place] [address], [id number] , [place]. tel:[phone] Offic/outpt E&m Estab Low-mod [facility], [address], [place], [place], [id number], [place] tel:[phone] SWOB-GJ FOLLOW UP (chief complaint)va ginal bleeding (chief complaint) Open Wound Of Vagina 4 Maribel Carballo. [address] [place] [address], [id number] , [place]. tel:[phone] Offic/outpt E&m Estab Mod-hi 2 [facility], [address], [place], [place], [id number], [place] tel:[phone] SWOB-GJ bleeding with intercourse (chief complaint)LL Q PAIN (chief complaint) Open wound of vagina, without mention of complicat 4 Maribel Carballo. [facility] [place], [place], [id number] , [place]. tel: [phone] Offic/outpt E&m Estab Low-mod [facility], [address], [place], [place], [id number], [place] tel:[phone] SWOB-GJ BACTERIAL INFECTION (chief complaint)va ginal discharge/it cesar (chief complaint) Bacterial Vaginosis/ Nonspecific 4 Maribel Carballo. [address] [place] [address], [id number] , [place]. tel: [phone] [facility], [address], [place], [place], [id number], [place] tel: [phone] SWOB-GJ Adrenogenital DisordersEndo metriosis NecHypertensi on, Benign 3 Maribel Carballo. [address] [place] [address], [id number] , [place]. tel: [phone] Offic/outpt E&m Estab Lowmod [facility], [address], [place], [place], [id number], [place] tel:[phone] SWOB-GJ Bacterial infection (chief complaint)va ginal discharge/it cesar (chief complaint) Bacterial Vaginosis/ Nonspecific 3 Maribel Carballo. [address] [place] [address], [id number] , [place]. tel: [phone] Offic/outpt E&m Estab Low-mod [facility], [address], [place], [place], [id number], [place] tel: [phone] SWOB-GJ No Information 2 Maribel Carballo. [address] [place] [address], [id number] , [place]. tel: [phone] Offic/outpt E&m Estab Low-mod [facility], [address], [place], [place], [id number], [place] tel: [phone] SWOB-GJ No Information 6201 2 Maribel Carballo. [address] [place] [address], [id number] , [place]. tel: [phone] Offic/outpt E&m Estab Low-mod [facility], [address], [place], [place], [id number], [place] tel: [phone] [facility] [place] [employer] No Information 2 Maribel Carballo. [address] [place] [address], [id number] , [place]. tel: [phone] Offic/outpt E&m Estab Minor 10 [facility], [address] [address], [place], [place], [id number], [place] tel: [phone] [facility] [place] [employer] No Information 0 2-201 1 Maribel Carballo. [address] [place] [address], [id number] , [place]. tel: [phone] [facility], [address] [address], [place], [place], [id number], [place] tel: [phone] [facility] [place] [employer] No Information 8-201 0 Maribel Carballo. [address] [place] [address], [id number] , [place]. tel: [phone] [facility], [address], [place], [place], [id number], [place] tel: [phone] [facility] [place] [employer] COMM[employer]ER No Information 5 0 Maribel Carballo. [address] [place] [address], [id number] , [place]. tel: [phone] [facility], [address], [place], [place], [id number], [place] tel: [phone] [facility] [place] [employer] No Information Dec-0 9-200 9 Maribel Carballo. [address] [place] [address], [id number] , [place]. tel:[phone] Referring Provider: Haris Serra, [address] [place] [address], [id number] . tel:[phone] Offic/outpt E&m Estab Low-mod [facility], [address] [address], [place], [place], [id number], [place] tel:[phone] [facility] [place] [employer] COMMODITY [employer]ER No Information 0-200 9 Maribel Carballo. [address] [place] [address], [id number] , [place]. tel: [phone] [facility], [address] [address], [place], [place], [id number], [place] tel:[phone] [facility] [place] [employer] COMMODITY BU[employer]ER No Information 9200 9 Maribel Carballo. [address] [place] [address], [id number] , [place]. tel: [phone] [facility], [address] [address], [place], [place], [id number], [place] tel:[phone] [facility] [place] [employer] COMMODITY BU[employer]ER No Information 200 9 Maribel Carballo. [address] [place] [address], [id number] , [place]. tel: [phone] Offic/outpt E&m Estab Low-mod [facility], [address] [address], [place], [place], [id number], [place] tel:[phone] [facility] [place] [employer] COMMODITY [employer]ER No Information 200 9 Maribel Carballo. [address] [place] [address], [id number] , [place]. tel: [phone] [facility], [address] [address], [place], [place], [id number], [place] tel:[phone] [facility] [place] [employer] COMMODITY [employer]ER No Information 0 200 9 Maribel Carballo. [address] [place] [address], [id number] , [place]. tel:[phone] Init Preven Meds E&m New Pt; 4 [facility], [address], [place], [place], [id number], [place] tel:[phone] [facility] [place] [employer] COMM[employer]ER No Information 9 Maribel Carballo. [address] [place] [address], [id number] , [place]. tel:[phone] Referring Provider: Haris López MD W, [address] [place] [address], [id number] . tel:[phone] Family History Family Member Type Diagnosis Age At Onset No Information Payers Payer name Insurance type Covered libertarian ID Authoriza tion(s) No Information Social History Type Description Quantity Date Captured Comments Sex Female Smoking Status No Information Sexual Orientation Straight or heterosexual Mar Chief Complaint And Reason For Visit No Information Reason For Referral Reason For Referral No Information History Of Present Illness Encounter Date Complaint History Of Prese nt Illness FOLLOW UP vaginal bleeding Onset: sudden. Severity level is moderate-severe. Duration is 1 Week. The patient describes it as clotting. Frequency: menorrhagia. The problem is improved. Symptom is aggravated by intercourse. Denies relieving factors. Associated symptoms include abdominal pain, back pain and cramps. Pertinent negatives include bloating, bruising, constipation, diarrhea, dizziness, dyspnea, fatigue, headache, nausea, pallor, pelvic pain and swelling. Additional information: Had intercourse and was found to have vaginal laceration involving entire vaginal apex. Started on estrace cream for severe atrophic changes.. bleeding with intercourse Onset: sudden. Severity level is moderate-severe. Duration is 3 Days. The patient describes it as clotting. Frequency: menorrhagia. The problem is improved. Context: post hysterectomy. Symptom is aggravated by intercourse. Relieving factors include rest. Associated symptoms include abdominal pain and back pain. Pertinent negatives include bloating, bruising, constipation, cramps, diarrhea, dizziness, dyspnea, fatigue, headache, nausea, pallor, pelvic pain and swelling. Additional information: [place] usually bee ok, butrecently has noticed more dryness and had sudden onset of pain and then bleeding. Almost went to ER.. LLQ PAIN BACTERIAL INFECTION vaginal discharge/itching Onset: sudden. Severity level is moderate-severe. Duration 24-72 hours. The patient describes it as fishy and yellow. It occurs continuously. The problem is with no change. Context: HRT and sexually active. Denies aggravating factors. Denies relieving factors. Pertinent negatives include bleeding, burning, dyspareunia, itching, parasites, persistent diarrhea, vulvar dystrophy and vulvodynia. Bacterial infection vaginal discharge/itching Onset: 1 week ago. Severity level is moderate. Duration 1 Week. The patient describes it as fishy and yellow. It occurs continuously. The problem is with no change. Context: sexually active. Denies aggravating factors. Denies relieving factors. Pertinent negatives include bleeding, burning, itching and persistent diarrhea. Additional information: Dr Rodas treated with cipro and resolved for a day and now back. He was worried about a vaginal fistula. Functional Status Date Functional Assessmen t No Information Instructions Date Instruction Additional Infor carroll Discussed diet and exercise Rela roge to Bacterial Vaginosis/ Nonspecific Assessments Type Assessment Date No Information Patient Care Teams Name Effective Dates (start - stop) Status Members No Information
[2025-01-12] VITALS (8 sets, daily range): BP systolic 129–176; BP diastolic 78–92; PULSE 68–70; TEMP 36.4; O2SAT 96–99; BMI 23.9
--- OUTSIDE RECORDS SUMMARY | 2025-01-12 19:06 | XMS_ITS | Clinical Summary ---
Author Organization [facility] Address [address] [place] [id number] Care Team Providers Care High Man Name Role Phone Roel CARNEY DO, Rolland R Primary Care Provider Allergies Active AllergyReactionsCriticalityNoted UhdhSvqtcmtmHtmqwgmtsvdd22/21/2009 Pvbzhxchrbchl71/21/9758Czkdabrlswi18/21/7473Ahcomarbpd55/21/2009Oxytetracycline 07/02/20086534Ulqlmyrreqfl11/21/2009 Medications MedicationSigDispense QuantityRefillsLast FilledStart DateEnd DateStatus paroxetine [...] number is lower riskNot on file02/18/2020Data from: https://www.neighborhoodatlas.medicine.[email or web address].edu/. Last address used for calculationNot on file02/18/2020CommentsNoSex and Gender Information ValueDate RecordedSex Assigned at BirthNot on fileLegal CwcXnrsud25/02/2012 8:19 AM ESTGender IdentityNot on fileSexual OrientationNot on file Last Filed Vital Signs Vital SignReadingTime TakenCommentsBlood Fdtbfaok547/76007/18/2008 4:16 PM EDT Pulse--Faztnplqjrz02.3 ??C (99.2 ??F)07/18/2008 4:16 PM EDTRespiratory Rate-- Oxygen Saturation--Inhaled Oxygen Concentration--Weight--Height--Body Mass Index -- Plan of Treatment Health MaintenanceDue DateLast DoneCommentsAnxiety Emnmfxfrh07/20/1983Depression Bdosspikn50/20/1983HIV Ughjvzvsb65/20/1983Hepatitis C Ihwxzvdyq55/20/1983 DTaP,Tdap,Td Vaccine (1 - Tdap)08/01/1983Cervical Cancer Vsedynqyc69/20/1986 Mammogram Hcgccgcxc46/20/2005CT Myppdznrwyiy07/20/2010Cologuard (FIT-DNA) 07/31/20092496Cniutaufhlo03/20/2010Colorectal Cancer Tmvflnswc67/20/2010Diabetes Zgtyihlcg79/20/2010Fecal Occult Blood2009Lipid Fclhjbuch45/20/2010 Eznicocdjecdu54/20/2010Pneumococcal Vaccine: 50+ (1 of 1 - PCV)2014 Shingrix Vaccine (1 of 2)2014Covid-19 Vaccine (1 - 2024- season) 2024Influenza Vaccine (#1)2024RSV Vaccine (1 - 1-dose 75+ series) 08/01/2039 Insurance Care Teams Team MemberRelationshipSpecialtyStart DateEnd Date Sean Sevilla III, DO [facility] - General06/18/08
--- NOTE | 2025-01-12 19:19 | PC.NURSE ---
Patient reports having episodes , describes as moments of being slow to respond and feeling weekness. Patient and grandson report these symptoms have been present for approx. one week with frequency of episodes increasing.
--- NOTE | 2025-01-12 19:24 | ECG_ITS ---
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 Measurements Intervals [place] Rate: 68 P: 54 VT: 136 QRS: 39 QRSD: 82 T: 54 QT: 408 QTc: 426 Interpretive Statements 1100 Sinus rhythm 9110 normal ECG Compared to ECG 01/07/2025 00:09:37 No significant changes Electronically Signed On 01-12-2025 19:48:28 EDT by RIGO GLYNN M.D.
--- NOTE | 2025-01-12 19:24 | ED.GENADUL1 ---
HPI HPI - General Adult General Chief complaint: Altered Mental Status Stated complaint: SEIZURE POSSIBLE Time Seen by Provider: 01/12/25 19:08 Source: patient Mode of arrival: walk-in History of Present Illness HPI narrative: 59-year-old female presented to the emergency department for staring episodes. These been happening for more than a week and she was seen here a week ago. At that time she had a CAT scan of her head and a CTA of her head as well. She has been having these episodes about 20 times per day. She remembers the whole thing and family member describes them. He describes that she seems to be awake and she will seem to be staring and she will answer questions appropriately but she is very slow to answer them. She has no history of seizure disorder and has never seen a neurologist. Related Data Home Medications ?Medication ?Instructions ?Recorded ?Confirmed buspirone 30 mg tablet mg 06/01/24 empagliflozin 10 mg tablet mg 06/01/24 (Jardiance) lamotrigine 100 mg tablet mg 06/01/24 levothyroxine 50 mcg tablet mcg 06/01/24 lisinopril 40 mg tablet mg 06/01/24 paroxetine HCl 40 mg tablet mg PO 06/01/24 Allergies Allergy/AdvReac Type Severity Reaction Status Date / Time amoxicillin Allergy Mild Rash Verified 01/12/25 19:07 tetracycline Allergy Mild Rash Verified 01/12/25 19:07 erythromycin base Allergy Rash Verified 01/12/25 19:07 Penicillins Allergy Rash Verified 01/12/25 19:07 Review of Systems ROS Narrative A ten point review of systems is negative except as noted above. PFSH PFSH Social History Little interest or pleasure in doing things: not at all Feeling down, depressed, or hopeless: not at all Exam Narrative Exam Narrative: Nurses note and vital signs reviewed General:The patient appears well and in no apparent distress.Patient is resting comfortably on cart. Skin:Warm, dry, no pallor noted.There is no rash noted. Head:Normocephalic, atraumatic Eye: Normal conjunctiva, no drainage, EOMI. PERRL Ears, Nose, Mouth, and Throat: oral mucosa is moist. Nares patent. Cardiovascular:Regular Rate and Rhythm Respiratory:Patient is in no distress, no accessory muscle use, lungs are clear to auscultation, no wheezing, rales or rhonchi Back:non-tender GI: Soft and nontender Musculoskeletal: The patient has no evidence of calf tenderness, no pitting edema, symmetrical pulses noted bilaterally Neurological:A&O x4, normal speech; upper and lower extremity strength 5 out of 5 and symmetric. No facial droop. Psychiatric:Cooperative Constitutional Vital Signs, click to edit/add: Last Vital Signs Temp 97.6 F 01/12/25 19:07 Pulse 68 01/12/25 19:30 Resp 20 01/12/25 19:07 BP 176/92 H 01/12/25 19:57 Pulse Ox 97 01/12/25 19:57 O2 Del Method Room Air 01/12/25 19:07 Course Vital Signs Vital signs: Vital Signs Blood Pressure 174/78 H 01/12/25 19:06 Pulse Oximetry 99 01/12/25 19:06 Temperature 97.6 F 01/12/25 19:07 Pulse Rate 68 01/12/25 19:30 Respiratory Rate 20 01/12/25 19:07 Blood Pressure 176/92 H 01/12/25 19:57 Pulse Oximetry 97 01/12/25 19:57 Oxygen Delivery Method Room Air 01/12/25 19:07 Medical Decision Making MDM Narrative Medical decision making narrative: The patient has been having numerous staring episodes. Week ago she had a negative CTA head and neck. Today's CT brain is negative. She is being referred to neurology for appropriate follow-up. She does not require admission in the hospital at this point. She may need further outpatient testing. Treatment diagnosis and follow-up were discussed with the patient and her family. Differential Diagnosis Differential Diagnosis: Staring episode, focal seizure, hypoglycemia Lab Data Lab results reviewed: Yes I reviewed the patient's lab results Labs: Lab Results 01/12/25 01/12/25 01/12/25 Range/Units 19:15 19:40 19:41 WBC 6.5 (4.0-11.0) 10^3/uL RBC 5.31 (4.20-5.40) 10^6/uL Hgb 14.5 (12.0-16.0) g/dL Hct 42.8 (36.0-48.0) % MCV 80.6 L (81.0-99.0) fL MCH 27.3 (26.7-34.0) pg MCHC 33.9 (29.9-35.2) g/dL RDW 12.7 (11.0-15.0) % Plt Count 231 (150-450) 10^3/uL MPV 11.2 (9.5-13.5) fL Neut % (Auto) 52.6 (43.0-75.0) % Lymph % (Auto) 33.9 (20.5-60.0) % [place] % (Auto) 8.4 (1.7-12.0) % Eos % (Auto) 3.7 (0.9-7.0) % Baso % (Auto) 0.9 (0.2-2.0) % Neut # (Auto) 3.4 (1.4-6.5) 10^3/uL Lymph # (Auto) 2.2 (1.2-3.8) 10^3/uL [place] # (Auto) 0.5 (0.3-0.8) 10^3/uL Eos # (Auto) 0.2 (0.0-0.7) 10^3/uL Baso # (Auto) 0.1 (0.0-0.1) 10^3/uL Abs Immat Gran (auto) 0.03 (0.00-0.03) 10^3/uL Imm/Tot Granulo (auto) 0.5 (0.0-0.5) % Sodium 136 (136-145) mmol/L Potassium 3.9 (3.5-5.1) mmol/L Chloride 103 (98-107) mmol/L Carbon Dioxide 21.8 (21.0-32.0) mmol/L Anion Gap 15.1 BUN 13.0 (7.0-18.0) mg/dL Creatinine 0.69 (0.55-1.02) mg/dL Est GFR ( Amer) >60 (>=60 mL/min/1.73m^2) Est GFR (Non-Af Amer) >60 (>=60 mL/min/1.73m^2) BUN/Creatinine Ratio 18.8 Glucose 291 H (74-106) mg/dL Calcium 9.1 (8.5-10.1) mg/dL Urine Color Lt. yellow (YELLOW) Urine Clarity Clear (CLEAR) Urine pH 5.5 (5.0-9.0) Ur Specific [place] 1.010 (1.005-1.025) Urine Protein Negative (NEG/TRACE) mg/dL Urine Glucose (UA) >=1000 A (NEGATIVE) mg/dL Urine Ketones Negative (NEGATIVE) mg/dL Urine Occult Blood Negative (NEGATIVE) Urine Nitrite Negative (NEGATIVE) Urine Bilirubin Negative (NEGATIVE) Urine Urobilinogen 1.0 (0.2-1.0) EU/dL Ur Leukocyte Esterase Negative (NEGATIVE) Urine RBC None seen (0-2) #/HPF Urine WBC 0-2 A (NONE SEEN) #/HPF Ur Squamous Epith Cells Rare (NONE/RARE) #/LPF Urine Crystals None seen (None Seen) #/HPF Urine Bacteria Trace A (NONE SEEN) #/HPF Urine Casts None seen (NONE SEEN) #/LPF Urine Mucus None seen (NONE SEEN) Ur Culture Indicated? No POC Glucose 269 H (74-106) mg/dL Imaging Data CT scan - head: Radiologist's impression: Mild generalized brain volume loss consistent with age, no acute intracranial hemorrhage, mass, infarct, or edema ECG Data Attestation: I personally reviewed and interpreted this ECG as follows: (EKG on my interpretation shows normal sinus rhythm with rate of 68 and no acute change.) Discharge Plan Discharge Chief Complaint: Altered Mental Status Clinical Impression: Altered mental status Patient Disposition: Home, Self-Care Time of Disposition Decision: 21:05 Condition: Good Mode of Transportation: Private Vehicle Prescriptions / Home Meds: No Action levothyroxine 50 mcg tablet buspirone 30 mg tablet paroxetine HCl 40 mg tablet PO lisinopril 40 mg tablet lamotrigine 100 mg tablet Jardiance 10 mg tablet Print Language: Bahraini Instructions: Altered Mental Status (ED) Referrals: Karla Miller DO [Physician, Neurology] - 1 week Lawanda Newman DO [Primary Care Provider] - 1 week
[2025-01-12 19:53] LABS: Hematocrit 42.8 % (36.0-48.0); Hemoglobin 14.5 g/dL (12.0-16.0); Immature Granulocytes Abs Auto 0.03 10^3/uL (0.00-0.03); Immature Granulocytes Pct Auto 0.5 % (0.0-0.5); Lymphocytes Absolute Auto 2.2 10^3/uL (1.2-3.8); Mean Corpuscular HGB Conc 33.9 g/dL (29.9-35.2); Mean Corpuscular Hemoglobin 27.3 pg (26.7-34.0); Mean Corpuscular Volume 80.6 fL (81.0-99.0); Platelet Count 231 10^3/uL (150-450); Red Blood Count 5.31 10^6/uL (4.20-5.40); White Blood Count 6.5 10^3/uL (4.0-11.0)
[2025-01-12 19:54] LABS: Glucose Urine UA >=1000 mg/dL (NEGATIVE)
[2025-01-12 20:00] LABS: Anion Gap 15.1; Blood Urea Nitrogen 13.0 mg/dL (7.0-18.0); Calcium 9.1 mg/dL (8.5-10.1); Carbon Dioxide 21.8 mmol/L (21.0-32.0); Chloride 103 mmol/L (98-107); Estimated GFR (African America >60 (>=60 mL/min/1.73m^2); Estimated GFR (Non-African Ame >60 (>=60 mL/min/1.73m^2); Glucose 291 mg/dL (74-106); Potassium 3.9 mmol/L (3.5-5.1); Sodium 136 mmol/L (136-145)
[2025-01-12 20:12] LABS: Cast Seen? NONE SEEN #/LPF (NONE SEEN); Crystals Seen? None Seen #/HPF (None Seen); Urine Culture Indicated NO
== END 2025-01-12 21:31 | disposition home or self-care (01) ==
PROVIDERS: Emergency Provider Emergency Medicine; PCP Family Medicine
DX: R41.82 Altered mental status, unspecified (principal)
CPT/HCPCS: 36415; 70450; 80048; 81001; 85025; 93005; 99284; 99285